=== PATIENT | male | born 1945 | race Caucasian/White ===

== ENCOUNTER 2018-09-20 14:33 | Emergency (ER) | payer MEDICARE ==
[2018-09-20 14:58] VITALS: BP 138/85; PULSE 57; RESP 18; TEMP 98.4
--- NOTE | 2018-09-20 15:47 | XR ---
Right foot HISTORY: Pain 3 views of the right foot Bone mineralization, joint spaces and alignment are maintained. No fracture or dislocation. There is a plantar calcaneal spur. Calcification present at the distal Achilles tendon. IMPRESSION: No acute abnormality. Plantar calcaneal spur and additional findings above.
[2018-09-20 16:04] LABS: Basophils % (A) 1 %; Eosinophils # (A) 0.2 k/uL (0-0.7); Eosinophils % (A) 4 %; HCT 45.5 % (39.0-53.0); HGB 15.2 gm/dL (13.0-17.5); Lymphocytes # (A) 2.1 k/uL (1.0-4.8); Lymphocytes % (A) 32 %; MCH 30.7 pg (25.0-35.0); MCHC 33.3 g/dL (31.0-37.0); Mean Platelet Volume 7.2; Monocytes # (A) 0.5 k/uL (0-1.0); Monocytes % (A) 7 %; Neutrophils # (A) 3.6 k/uL (1.3-7.7); Neutrophils % (A) 55 %; Platelet Count 234 k/uL (150-450); RBC 4.95 m/uL (4.30-5.90); RDW 13.5 % (11.5-15.5); WBC 6.6 k/uL (3.8-10.6)
[2018-09-20 16:15] LABS: ALT 23 U/L (21-72); AST 21 U/L (17-59); Albumin 3.9 g/dL (3.5-5.0); Alkaline Phosphatase 55 U/L (38-126); Anion Gap 9 mmol/L; Blood Urea Nitrogen 20 mg/dL (9-20); C Reactive Protein 5.4 mg/L (<10.0); Calcium 9.1 mg/dL (8.4-10.2); Carbon Dioxide 21 mmol/L (22-30); Chloride 113 mmol/L (98-107); Glucose 88 mg/dL (74-99); Potassium 4.4 mmol/L (3.5-5.1); Sodium 143 mmol/L (137-145); Total Bilirubin 0.6 mg/dL (0.2-1.3); Total Protein 6.9 g/dL (6.3-8.2)
--- NOTE | 2018-09-20 16:25 | ED ---
Lower Extremity Injury HPI - General Chief Complaint: Extremity Injury, Lower Stated Complaint: Swollen foot Time Seen by Provider: 09/20/18 15:07 Source: patient Mode of arrival: ambulatory Limitations: no limitations - History of Present Illness Initial Comments: 73-year-old male presenting today for chief complaint of right foot pain and erythema x 6 days. Patient states that on Friday developed erythema and pain to the foot, states it is exquisitely tender to rocking. He states it is mostly at the base of the first digit. She denies any limited changes's range of motion at the digits. Patient denies any trauma or injury. He denies any sharyn aks the skin. Patient denies any fever or chills night sweats or general malaise. Patient states he was seen by his primary care provider who thought it could be developing cellulitis and prescribed Keflex. Patient states she's been compliant with medications he denies the erythema worsening he states it has stayed in the same location as the onset on Friday. He states it remains tender. Patient states he is concerned it may be gout, denies history. She denies lower extremity swelling, pt states at the base of the right great toe mild swelling. Upon arrival patient appears well he is afebrile appearing well remaining review of system negative, patient denies any recent shortness of b reath, chest pain, back pain, abdominal pain, nausea or vomiting, numbness or tingling, dysuria or hematuria, constipation or diarrhea, headaches or visual changes, or any other complaints. - Related Data Previous Rx's Medication Instructions Recorded Sulfamethox-Tmp 800-160Mg [Bactrim 2 tab PO Q12HR 7 Days #28 tab 09/20/18 DS 800-160 mg] Allergies Allergy/AdvReac Type Severity Reaction Status Date / Time No Known Allergies Allergy Verified 09/20/18 14:58 Review of Systems ROS Statement: Those systems with pertinent positive or pertinent negative responses have been documented in the HPI. ROS Other: All systems not noted in ROS Statement are negative. Past Medical History Past Medical History: Hyperlipidemia Additional Past Medical History / Comment(s): skin cancer on face that was removed History of Any Multi-Drug Resistant Organisms: None Reported Past Surgical History: Orthopedic Surgery Additional Past Surgical History / Comment(s): skin cancer removal from face Past Psychological History: No Psychological Hx Reported Smoking Status: Former smoker Past Alcohol Use History: None Reported Past Drug Use History: None Reported General Exam - General Exam Comments Initial Comments: General: The patient is awake and alert, in no distress, and does not appear acutely ill. Eye: Pupils are equal, round and reactive to light, extra-ocular movements are intact. No nystagmus. There is normal conjunctiva bilaterally. No signs of icterus. Ears, nose, mouth and throat: There are moist mucous membranes and no oral lesions. Neck: The neck is supple, there is no tenderness or JVD. Cardiovascular: There is a regular rate and rhythm. No murmur, rub or gallop is appreciated. Respiratory: Lungs are clear to auscultation, respirations are non-labored, breath sounds are equal. No wheezes, stridor, rales, or rhonchi. Musculoskeletal: Upon inspection of the foot there is erythema and mild soft tissue swelling at the MTP joint of digits #1-3, especially digit #1. Normal ROM, mild tenderness at the base of 1st MTP joint. Strength 5/5 of the digits of the feet b/l including MTP. Sensation intact. DP pulses equal bilaterally 2+. Pt tender to palpation over 1st MTP base, as welll as second diffusely. Capillary refill less than 2 seconds. Negative Lisa. No tenderness to patient of the calf. Neurological: A&O x 3. CN II-XII intact, There are no obvious motor or sensory deficits. Coordination appears grossly intact. Speech is normal. Skin: Skin is warm and dry and no rashes or lesions are noted. Psychiatric: Cooperative, appropriate mood & affect, normal judgment. Limitations: no limitations Course Vital Signs 09/20/18 14:54 Temperature 98.4 F Pulse Rate 57 L Respiratory 18 Rate Blood Pressure 138/85 O2 Sat by Pulse 95 Oximetry Medical Decision Making - Medical Decision Making 73-year-old male presenting with erythema of the right foot and pain at the MTP joints. Laboratory studies revealed no moist ESR as well as CRP no leukocytosis. Patient has no constitutional symptoms, afebrile upon arrival. Location of erythema and swelling concerning for possible gout. Imaging studies (-) for acute osseous abnormality. Patient was evaluated impression by attending physician Dr. rPide. DDX cellulitis vs gout-agreeable with plan and d/c. Bactrim added to her antibiotic regimen, and patient instructed to take ibuprofen every 6-8 hours for the next 7-10 days. Pt is to monitor erythema return for any worsening. Return parameters were discussed at length the patient verbalizes understanding. Patient discharged appearing well, denying questions at this time. - Lab Data Result diagrams: 09/20/18 15:46 09/20/18 15:46 Lab Results 09/20/18 09/20/18 09/20/18 Range/Units 15:46 15:46 15:46 WBC 6.6 (3.8-10.6) k/uL RBC 4.95 (4.30-5.90) m/uL Hgb 15.2 (13.0-17.5) gm/dL Hct 45.5 (39.0-53.0) % MCV 92.0 (80.0-100.0) fL MCH 30.7 (25.0-35.0) pg MCHC 33.3 (31.0-37.0) g/dL RDW 13.5 (11.5-15.5) % Plt Count 234 (150-450) k/uL Neutrophils % 55 % Lymphocytes % 32 % Monocytes % 7 % Eosinophils % 4 % Basophils % 1 % Neutrophils # 3.6 (1.3-7.7) k/uL Lymphocytes # 2.1 (1.0-4.8) k/uL Monocytes # 0.5 (0-1.0) k/uL Eosinophils # 0.2 (0-0.7) k/uL Basophils # 0.0 (0-0.2) k/uL ESR (0-15) mm/hr Sodium 143 (137-145) mmol/L Potassium 4.4 (3.5-5.1) mmol/L Chloride 113 H (98-107) mmol/L Carbon Dioxide 21 L (22-30) mmol/L Anion Gap 9 mmol/L BUN 20 (9-20) mg/dL Creatinine 0.83 (0.66-1.25) mg/dL Est GFR (CKD-EPI)AfAm >90 (>60 ml/min/1.73 sqM) Est GFR (CKD-EPI)NonAf 89 (>60 ml/min/1.73 sqM) Glucose 88 (74-99) mg/dL Uric Acid 7.8 (3.5-8.5) mg/dL Calcium 9.1 (8.4-10.2) mg/dL Total Bilirubin 0.6 (0.2-1.3) mg/dL AST 21 (17-59) U/L ALT 23 (21-72) U/L Alkaline Phosphatase 55 (38-126) U/L C-Reactive Protein 5.4 (<10.0) mg/L Total Protein 6.9 (6.3-8.2) g/dL Albumin 3.9 (3.5-5.0) g/dL 09/20/18 Range/Units 16:13 WBC (3.8-10.6) k/uL RBC (4.30-5.90) m/uL Hgb (13.0-17.5) gm/dL Hct (39.0-53.0) % MCV (80.0-100.0) fL MCH (25.0-35.0) pg MCHC (31.0-37.0) g/dL RDW (11.5-15.5) % Plt Count (150-450) k/uL Neutrophils % % Lymphocytes % % Monocytes % % Eosinophils % % Basophils % % Neutrophils # (1.3-7.7) k/uL Lymphocytes # (1.0-4.8) k/uL Monocytes # (0-1.0) k/uL Eosinophils # (0-0.7) k/uL Basophils # (0-0.2) k/uL ESR 13 (0-15) mm/hr Sodium (137-145) mmol/L Potassium (3.5-5.1) mmol/L Chloride (98-107) mmol/L Carbon Dioxide (22-30) mmol/L Anion Gap mmol/L BUN (9-20) mg/dL Creatinine (0.66-1.25) mg/dL Est GFR (CKD-EPI)AfAm (>60 ml/min/1.73 sqM) Est GFR (CKD-EPI)NonAf (>60 ml/min/1.73 sqM) Glucose (74-99) mg/dL Uric Acid (3.5-8.5) mg/dL Calcium (8.4-10.2) mg/dL Total Bilirubin (0.2-1.3) mg/dL AST (17-59) U/L ALT (21-72) U/L Alkaline Phosphatase (38-126) U/L C-Reactive Protein (<10.0) mg/L Total Protein (6.3-8.2) g/dL Albumin (3.5-5.0) g/dL Disposition Clinical Impression: Right foot pain, Burn erythema of right foot Disposition: HOME SELF-CARE Condition: Good Instructions (If sedation given, give patient instructions): Cellulitis (ED), Gout (ED) Additional Instructions: Please use medication as discussed. Please follow-up with family doctor in the next 2 days. Please return to emergency room if the symptoms increase or worsen or for any other concerns. Prescriptions: Sulfamethox-Tmp 800-160Mg [Bactrim DS 800-160 mg] 2 tab PO Q12HR 7 Days #28 tab Is patient prescribed a controlled substance at d/c from ED?: No Referrals: Naeem Roblero DO [Primary Care Provider] - 1-2 days Time of Disposition: 16:48
[2018-09-20] MEDS ORDERED: IBUPROFEN 600 MG TAB PO STA (16:49)
== END 2018-09-20 17:40 | disposition home or self-care (01) ==
LOC: EC 14:33
DX: M79.671 Pain in right foot (principal); L53.9 Erythematous condition, unspecified; M79.89 Other specified soft tissue disorders; Z85.828 Personal history of other malignant neoplasm of skin; Z87.891 Personal history of nicotine dependence
CPT/HCPCS: 36415; 80053; 84550; 85025; 85652; 86140; 99283

== ENCOUNTER 2019-01-31 10:31 | Emergency (ER) | payer MEDICARE ==
[2019-01-31 10:47] VITALS: RESP 16; TEMP 98.3
--- NOTE | 2019-01-31 11:11 | ED ---
General Adult HPI - General Chief complaint: Skin/Abscess/Foreign Body Stated complaint: Arm infection Time Seen by Provider: 01/31/19 10:55 Source: patient, RN notes reviewed Mode of arrival: ambulatory Limitations: no limitations - History of Present Illness Initial comments: Patient is a pleasant 74-year-old male presenting to the emergency Department with left forearm swelling. Onset of symptoms was yesterday. Patient did have somewhat similar symptoms a year or so ago of his foot that was diagnosed as cellulitis. Patient was golfing yesterday. Patient states it is burning. No other area of involvement. No upper arm involvement. No fevers. No trauma. No known bug bites. Patient does have some mild skin breakdown in the medial portion of the forearm and some chronic forearm discoloration. - Related Data Home Medications Medication Instructions Recorded Confirmed Multivitamins, Thera [Multivitamin 1 tab PO DAILY 01/31/19 01/31/19 (formulary)] Pravastatin Sodium [Pravachol] 40 mg PO DAILY 01/31/19 01/31/19 Vit A/Vit C/Vit E/Zinc/Copper 1 cap PO DAILY 01/31/19 01/31/19 [ICAPS SOFTGEL] diphenhydrAMINE [Benadryl] 25 mg PO HS PRN 01/31/19 01/31/19 Previous Rx's Medication Instructions Recorded Cephalexin [Keflex] 500 mg PO QID #40 cap 01/31/19 predniSONE 20 mg PO BID #10 tab 01/31/19 Allergies Allergy/AdvReac Type Severity Reaction Status Date / Time No Known Allergies Allergy Verified 01/31/19 11:02 Review of Systems ROS Statement: Those systems with pertinent positive or pertinent negative responses have been documented in the HPI. ROS Other: All systems not noted in ROS Statement are negative. Constitutional: Denies: fever Eyes: Denies: eye pain ENT: Denies: ear pain Respiratory: Denies: cough, dyspnea Cardiovascular: Denies: chest pain Endocrine: Denies: fatigue Gastrointestinal: Denies: abdominal pain Genitourinary: Denies: dysuria Musculoskeletal: Denies: back pain Skin: Reports: as per HPI, rash Neurological: Denies: weakness Past Medical History Past Medical History: Hyperlipidemia Additional Past Medical History / Comment(s): skin cancer on face that was removed History of Any Multi-Drug Resistant Organisms: None Reported Past Surgical History: Orthopedic Surgery Additional Past Surgical History / Comment(s): skin cancer removal from face Past Psychological History: No Psychological Hx Reported Smoking Status: Former smoker Past Alcohol Use History: None Reported Past Drug Use History: None Reported General Exam Limitations: no limitations General appearance: alert, in no apparent distress Head exam: Present: atraumatic Eye exam: Present: normal appearance, PERRL ENT exam: Present: normal oropharynx Neck exam: Present: normal inspection Respiratory exam: Present: normal lung sounds bilaterally Cardiovascular Exam: Present: regular rate, normal rhythm Expanded Peripheral pulses: 2+: Radial (L) GI/Abdominal exam: Present: soft. Absent: tenderness Left Forearm Wrist exam: Present: tenderness, swelling, other (Left Dorsal forearm with approximately 12 x 8 cm area of swelling and mild erythema and very mild tenderness.) Neurological exam: Present: alert Psychiatric exam: Present: normal affect, normal mood Skin exam: Present: erythema (Mild erythema left dorsal forearm), other (Small area of skin breakdown medial left forearm.) Course Vital Signs 01/31/19 10:44 Temperature 98.3 F Pulse Rate 61 Respiratory 16 Rate Blood Pressure 130/70 O2 Sat by Pulse 97 Oximetry Medical Decision Making - Medical Decision Making Patient presents with symptoms and evaluation more likely related to inflammation/ALLERGIC reaction possibly from insect bite. Cellulitis cannot be excluded. Patient will be treated for both. Patient is advised close follow-up with primary care physician beginning of the week. Disposition Clinical Impression: Left arm swelling Disposition: HOME SELF-CARE Condition: Stable Instructions (If sedation given, give patient instructions): Cellulitis (ED), Insect Bite or Sting (ED) Additional Instructions: Please follow-up with primary care physician in the being the week for reevaluation. Return for fevers, increased pain, increased redness, increased swelling, worsening symptoms, symptoms involving the upper arm, or any other concerns. Continue [id number] Benadryl, 25-50 mg 4 times daily for the next 5 days. Your prescriptions have been sent to [facility] Prescriptions: Cephalexin [Keflex] 500 mg PO QID #40 cap predniSONE 20 mg PO BID #10 tab Is patient prescribed a controlled substance at d/c from ED?: No Referrals: Naeem Roblero DO [Primary Care Provider] - 1-2 days Time of Disposition: 11:17
[2019-01-31 11:28] VITALS: BP 127/67; PULSE 57
== END 2019-01-31 11:35 | disposition home or self-care (01) ==
LOC: EC 10:31
DX: M79.89 Other specified soft tissue disorders (principal); L53.9 Erythematous condition, unspecified; L08.9 Local infection of the skin and subcutaneous tissue, unspecified; E78.5 Hyperlipidemia, unspecified; Z85.828 Personal history of other malignant neoplasm of skin; Z87.891 Personal history of nicotine dependence; Z98.890 Other specified postprocedural states; Z79.899 Other long term (current) drug therapy
CPT/HCPCS: 99283

== ENCOUNTER 2019-04-27 07:16 | Emergency (ER) | payer MEDICARE ==
[2019-04-27 07:24] VITALS: BP 146/82; PULSE 50; RESP 17; TEMP 98.1
[2019-04-27] MEDS ORDERED: diphenhydrAMINE 25 MG CAP PO STA (07:41)
[2019-04-27] MEDS ORDERED: predniSONE 20 MG TAB PO STA (07:41)
[2019-04-27] MEDS ORDERED: FAMOTIDINE 20 MG TAB PO STA (07:42)
--- NOTE | 2019-04-27 07:55 | ED ---
General Adult HPI - General Chief complaint: Skin/Abscess/Foreign Body Stated complaint: L Leg Swelling Time Seen by Provider: 04/27/19 07:26 Source: patient Mode of arrival: ambulatory Limitations: no limitations - History of Present Illness Initial comments: The patient is a 74-year-old male with history of hyperlipidemia who presents to the emergency room in with reported redness and swelling to his left lateral thigh. He reports that [place] He was outside when he was bit by something. States that he had a small papule which turned into a large erythematous, warm area. Denies any drainage. No blistering to the area. States that it has been pruritic. Denies any leg pain. No calf swelling. No history of ALLERGIC reactions as such in the past. He took Benadryl which did somewhat improve his symptoms. He also reports having an old prescription for Keflex at home for which she did start taking as well. Reports that he took 2 days worth of the medication. He denies that the rash is getting larger in size but due to the persistence of the lesion, he did want to get evaluated. Denies fevers or chills. No nausea or vomiting. Denies the additional exposures. No numbness or tingling in the lower extremity. Denies any shortness of breath or cough. No wheeze or respiratory compromise. There are no other alleviating, precipitating or modifying factors - Related Data Home Medications Medication Instructions Recorded Confirmed Multivitamins, Thera [Multivitamin 1 tab PO DAILY 01/31/19 01/31/19 (formulary)] Pravastatin Sodium [Pravachol] 40 mg PO DAILY 01/31/19 01/31/19 Vit A/Vit C/Vit E/Zinc/Copper 1 cap PO DAILY 01/31/19 01/31/19 [ICAPS SOFTGEL] diphenhydrAMINE [Benadryl] 25 mg PO HS PRN 01/31/19 01/31/19 Previous Rx's Medication Instructions Recorded Cephalexin [Keflex] 500 mg PO QID #40 cap 01/31/19 Cephalexin [Keflex] 500 mg PO QID #40 cap 01/31/19 predniSONE 20 mg PO BID #10 tab 01/31/19 predniSONE 20 mg PO BID #10 tab 01/31/19 Cephalexin [Keflex] 500 mg PO QID #28 cap 04/27/19 Famotidine [Pepcid] 20 mg PO DAILY #5 tablet 04/27/19 diphenhydrAMINE & Zinc Cream 1 applic TOPICAL BID #60 gm 04/27/19 [Benadryl Cream] predniSONE 20 mg PO BID #10 tab 04/27/19 Allergies Allergy/AdvReac Type Severity Reaction Status Date / Time No Known Allergies Allergy Verified 01/31/19 11:02 Review of Systems ROS Statement: Those systems with pertinent positive or pertinent negative responses have been documented in the HPI. ROS Other: All systems not noted in ROS Statement are negative. Past Medical History Past Medical History: Hyperlipidemia Additional Past Medical History / Comment(s): skin cancer on face that was removed, aortic aneurysm History of Any Multi-Drug Resistant Organisms: None Reported Past Surgical History: Orthopedic Surgery Additional Past Surgical History / Comment(s): skin cancer removal from face Past Psychological History: No Psychological Hx Reported Smoking Status: Former smoker Past Alcohol Use History: None Reported Past Drug Use History: None Reported General Exam Limitations: no limitations General appearance: alert, in no apparent distress Respiratory exam: Present: normal lung sounds bilaterally. Absent: respiratory distress, wheezes, stridor Cardiovascular Exam: Present: normal rhythm, bradycardia Extremities exam: Present: other. Absent: pedal edema (large area of redness consistent with allergic reaction. No fluctuance, induration or crepitance. No calf pain or swelling. 2+ DP and PT pulses. Blanchable), calf tenderness Course Vital Signs 04/27/19 07:20 Temperature 98.1 F Pulse Rate 50 L Respiratory 17 Rate Blood Pressure 146/82 O2 Sat by Pulse 99 Oximetry Medical Decision Making - Medical Decision Making Upon arrival the patient was placed into room 17. A thorough history and physical exam is performed. I did evaluate the patient's lower extremities. The patient does have a large area of urticaria on the lateral aspect of the thigh. This measures approximately 12 x 7 cm. The patient also has 2 smaller satellite areas. Surrounding soft tissue is without induration. There is mild warmth but no lymphatic streaking. Compartments are soft. No crepitance. No skin sloughing. The patient was provided with 25 mg of Benadryl, 60 g of prednisone and 20 mg of Pepcid. I did recommend covering the patient with antibiotics to prevent secondary cellulitis. The patient will be placed on Keflex 4 times a day. Patient was sent to the pharmacy. I also recommended that the patient take 5 additional days of prednisone and Pepcid. I will provide the patient with a prescription for Benadryl cream. I do want the franc ent to be evaluated within 1-2 days by his primary care physician to ensure improvement in his rash. Patient has any new or worsening symptoms he should return to the emergency room for wound evaluation. The patient was in agreement to the treatment plan and is discharged home in stable condition Disposition Clinical Impression: Contact dermatitis Disposition: HOME SELF-CARE Condition: Stable Instructions (If sedation given, give patient instructions): Contact Dermatitis (ED) Additional Instructions: Please follow-up with your primary care doctor in 2-4 days for reevaluation of your rash. Take the medications as directed. Return to the emergency room for any new or worsening symptoms Prescriptions: diphenhydrAMINE & Zinc Cream [Benadryl Cream] 1 applic TOPICAL BID #60 gm Cephalexin [Keflex] 500 mg PO QID #28 cap Famotidine [Pepcid] 20 mg PO DAILY #5 tablet predniSONE 20 mg PO BID #10 tab Is patient prescribed a controlled substance at d/c from ED?: No Referrals: Naeem Roblero DO [Primary Care Provider] - 1-2 days Time of Disposition: 07:55
== END 2019-04-27 08:08 | disposition home or self-care (01) ==
LOC: EC 07:16
DX: L25.9 Unspecified contact dermatitis, unspecified cause (principal); L50.9 Urticaria, unspecified; R00.1 Bradycardia, unspecified; E78.5 Hyperlipidemia, unspecified; Z87.891 Personal history of nicotine dependence; Z79.899 Other long term (current) drug therapy; Z85.828 Personal history of other malignant neoplasm of skin; Z98.890 Other specified postprocedural states
CPT/HCPCS: 99283; J7512

== ENCOUNTER → 2019-05-07 | Outpatient (CLI) | payer OTHER ==
--- NOTE | 2019-05-07 14:32 | NM ---
EXAMINATION TYPE: NM bone scan whole body DATE OF EXAM: 05/07/2019 COMPARISON: CT abdomen and pelvis 2016. HISTORY: Left hip pain. Delayed whole-body scanning was performed following the injection of 25.1 mCi Tc 99m MDP. Images acq uired 3 hours post injection. Images are obtained of the whole-body in anterior and posterior project ions with additional images of the pelvis in various projections. FINDINGS: There is no suspicious asymmetric radiotracer uptake to suggest osseous metastatic disease or other s uspicious abnormality. No increased radiotracer uptake identified in the region of left hip at area o f clinical concern when comparing with right hip or remainder of pelvis. Normal excretion in the blad juliette is noted. IMPRESSION: As above.
== END | disposition home or self-care (01) ==
LOC: RADNMMAIN 10:02
DX: M25.552 Pain in left hip (principal)
CPT/HCPCS: 78306; A9503

== ENCOUNTER → 2019-08-02 | Outpatient (CLI) | payer MEDICARE ==
--- NOTE | 2019-08-02 10:31 | XR ---
EXAMINATION TYPE: XR chest 2V DATE OF EXAM: 08/02/2019 COMPARISON: NONE HISTORY: Shortness of breath TECHNIQUE: Frontal and lateral views of the chest are obtained. FINDINGS: Scattered senescent parenchymal changes noted. No evidence for infiltrate. No evidence for atelectasis. Heart size is stable. Mediastinal structures are stable and grossly unremarkable. No evidence for hilar prominence. Degenerative changes dorsal spine. IMPRESSION: 1. No evidence for acute pulmonary disease.
== END ==
LOC: RADXRYALE 09:54
PROVIDERS: ATTEND Physician Assistant Medical
DX: Z01.811 Encounter for preprocedural respiratory examination (principal)
CPT/HCPCS: 71046

== ENCOUNTER → 2019-09-21 | Outpatient (CLI) | payer MEDICARE ==
--- NOTE | 2019-09-21 09:39 | XR ---
EXAMINATION TYPE: XR abdomen 2V DATE OF EXAM: 09/21/2019 CLINICAL HISTORY: Abdominal pain and constipation. TECHNIQUE: Supine and upright views of the abdomen are obtained. COMPARISON: CT abdomen and pelvis October 23, 2015 FINDINGS: Scattered gas is seen in non-distended small bowel loops. Gas and fecal material is seen in non-distended colon. New aortoiliac stent graft with additional stent grafts in the right and left renal arteries. Lung bases are clear. No pneumoperitoneum. Scattered pelvic phleboliths. Some spurri ng in the visualized lower thoracic spine. IMPRESSION: Overall nonobstructive bowel gas pattern. No significant colonic fecal prominence.
== END | disposition home or self-care (01) ==
LOC: RADXRYALE 08:38
PROVIDERS: ATTEND Physician Assistant Medical
DX: K59.00 Constipation, unspecified (principal)
CPT/HCPCS: 74019

== ENCOUNTER 2020-05-15 05:33 | Emergency (ER) | payer MEDICARE ==
[2020-05-15 05:40] VITALS: BP 113/67; PULSE 76; RESP 18; TEMP 99
--- NOTE | 2020-05-15 05:53 | ED ---
Recheck HPI - General Chief Complaint: Recheck/Abnormal Lab/Rx Stated Complaint: chills Time Seen by Provider: 05/15/20 05:44 Source: patient Mode of arrival: ambulatory - History of Present Illness Initial Comments: Joaquin is a very pleasant 75-year-old gentleman who presents the ER today via private vehicle requesting over 19 test. Patient reports that he was out hunting on upon returning home he had the chills. He reports he's been feeling better since then however he does live at home with a 94-year-old mother and wanted to be tested to make sure there is no chance he is to be maintained. Patient's been eating and drinking well but having any fevers no cough no shortness of breath no body aches. - Related Data Home Medications Medication Instructions Recorded Confirmed Multivitamins, Thera [Multivitamin 1 tab PO DAILY 01/31/19 01/31/19 (formulary)] Pravastatin Sodium [Pravachol] 40 mg PO DAILY 01/31/19 01/31/19 Vit A/Vit C/Vit E/Zinc/Copper 1 cap PO DAILY 01/31/19 01/31/19 [ICAPS SOFTGEL] diphenhydrAMINE [Benadryl] 25 mg PO HS PRN 01/31/19 01/31/19 Previous Rx's Medication Instructions Recorded Cephalexin [Keflex] 500 mg PO QID #40 cap 01/31/19 Cephalexin [Keflex] 500 mg PO QID #40 cap 01/31/19 predniSONE [Deltasone] 20 mg PO BID #10 tab 01/31/19 predniSONE [Deltasone] 20 mg PO BID #10 tab 01/31/19 Cephalexin [Keflex] 500 mg PO QID #28 cap 04/27/19 Famotidine [Pepcid] 20 mg PO DAILY #5 tablet 04/27/19 diphenhydrAMINE & Zinc Cream 1 applic TOPICAL BID #60 gm 04/27/19 [Benadryl Cream] predniSONE [Deltasone] 20 mg PO BID #10 tab 04/27/19 Allergies Allergy/AdvReac Type Severity Reaction Status Date / Time No Known Allergies Allergy Verified 05/15/20 05:40 Review of Systems ROS Statement: Those systems with pertinent positive or pertinent negative responses have been documented in the HPI. ROS Other: All systems not noted in ROS Statement are negative. Past Medical History Past Medical History: Hyperlipidemia Additional Past Medical History / Comment(s): skin cancer on face that was removed, aortic aneurysm History of Any Multi-Drug Resistant Organisms: None Reported Past Surgical History: Orthopedic Surgery Additional Past Surgical History / Comment(s): skin cancer removal from face Past Psychological History: No Psychological Hx Reported Smoking Status: Never smoker Past Alcohol Use History: None Reported Past Drug Use History: None Reported General Exam - General Exam Comments Initial Comments: Physical Exam GENERAL: Patient is well-developed and well-nourished. Patient is nontoxic and well-hydrated and is in no distress. HENT: Normocephalic, Atraumatic. EYES: PERRL, EOMI PULMONARY: Unlabored respirations. CARDIOVASCULAR: RRR Warm and well perfused extremities ABDOMEN: Non-distended SKIN: No rashes or bruising : Deferred NEUROLOGIC: Alert and oriented Normal speech Normal gait MUSCULOSKELETAL: Moving all extremities with no apparent injury PSYCHIATRIC: No SI/HI Course Vital Signs 05/15/20 05:37 Temperature 99 F Pulse Rate 76 Respiratory 18 Rate Blood Pressure 113/67 O2 Sat by Pulse 96 Oximetry Medical Decision Making - Medical Decision Making patient was seen and evaluated history is obtained from the patient is an pleasant 75-year-old gentleman requesting aCoban 19 test, advised the patient we do not have a rapid available but will Test him with the PCR he is agreeable to this advised to continue working until he is a negative result. All questions pertaining care were answered she was discharged home in stable condition. Disposition Clinical Impression: Exposure to COVID-19 virus Disposition: HOME SELF-CARE Condition: Stable Additional Instructions: Test will result in 48-72h, he will be notified by the hospital in the health department if you have a positive test. I recommended he call the hospital back on Friday to confirm the chest is resulted and is negative. Continued isolate and quarantine it to your test results. Review the ER if you have any worsening symptoms develop any shortness of breath fever that doesn't improve with medications or any new or concerning symptoms. Is patient prescribed a controlled substance at d/c from ED?: No Referrals: Naeem Roblero DO [Primary Care Provider] - 1-2 days
== END 2020-05-15 06:01 | disposition home or self-care (01) ==
LOC: EC 05:33
DX: Z03.818 Encounter for observation for suspected exposure to other biological agents ruled out (principal); E78.5 Hyperlipidemia, unspecified; Z79.899 Other long term (current) drug therapy; Z85.828 Personal history of other malignant neoplasm of skin; Z20.828 Contact with and (suspected) exposure to other viral communicable diseases
CPT/HCPCS: 99283; U0003

== ENCOUNTER → 2020-10-26 | Outpatient (CLI) | payer MEDICARE ==
--- NOTE | 2020-10-26 08:58 | CTL ---
EXAMINATION TYPE: CT Low Dose Lung DATE OF EXAM ORDERED: 10/26/2020 HISTORY: Long-term tobacco use. Lung cancer screening CT DLP: 127.[address] CTDI: 3.8 mGy Automated exposure control for dose reduction was used. SCREENING VISIT: Baseline study COMPARISON: None. TECHNIQUE: Low dose computed tomography scan was performed through the chest at 1 mm thick sections a nd reconstructed images in the coronal plane at [address] DIAGNOSTIC QUALITY: Limited, but interpretable Some motion artifact and dependent atelectasis. FINDINGS: LUNG NODULES: Present, detailed below: There is 3 x 2 mm right middle lobe nodule axial image 190. There is 4.8 x 2.5 mm lingular nodule axial image 97. Incidental calcified 4 mm nodule or granuloma right upper lobe axial image 110. There is 5.2 x 3.7 cm subpleural right lower lobe nodule axial image 199. There is 4.2 x 3.5 mm subpleural left lower lobe nodule axial image 147. LUNGS: COPD: Severity: Mild to borderline moderate Fibrosis: Severity: None Lymph nodes: Enlarged 1.4 x 1.3 cm AP window lymph node axial image 90 just anterior to the mid esoph irish. This is nonspecific. Other findings: Elevated left hemidiaphragm. RIGHT PLEURAL SPACE: Effusion: None Calcification: None Thickening: None Pneumothorax: None LEFT PLEURAL SPACE: Effusion: None Calcification: None Thickening: None Pneumothorax: None HEART: Heart Size: Normal Coronary calcification: None Pericardial effusion: None OTHER FINDINGS: Upper abdomen: Abdominal aortic stent graft noted on localizer. Bony thorax: None Supraclavicular region: None Other: None IMPRESSION: Scattered small nodules as detailed above. CT LUNG RAD AND CT CHEST RECOMMENDATION: Lung-Rad 2 Benign Appearance or Behavior: Continue annual sc reening with LDCT in 12 months. S Modifier (other clinically significant findings): None
== END | disposition home or self-care (01) ==
LOC: RADCTMAIN 06:38
DX: R91.8 Other nonspecific abnormal finding of lung field (principal)
CPT/HCPCS: 71271

== ENCOUNTER → 2021-03-08 | Outpatient (CLI) | payer MEDICARE ==
--- NOTE | 2021-03-08 12:32 | CT ---
EXAMINATION TYPE: CT angio abdomen pelvis DATE OF EXAM: 03/08/2021 COMPARISON: None HISTORY: follow up to AAA repair CT DLP: 2498.4 mGycm CONTRAST: CTA thoracic and abdominal aorta with 3-D reconstruction is performed without Oral Contrast and witho ut and with IV Contrast, patient injected with 100 mL of Isovue 370. Contrast CTA of the abdominal aorta was performed from the lung bases through the base of the pelvis. 3-D reconstruction imaging obtained at a separate workstation. CONTRAST CT ABDOMEN AND PELVIS ABDOMINAL AORTA: Aortoiliac stent graft is noted to be in place. No evidence for endoleak. [place] ane urysm measures 4.7 cm. Renal artery stents are in place with appropriate renal perfusion noted. Mi c and SMA vessels are within normal limits. LIVER/GB- No significant abnormality is seen. PANCREAS- No significant abnormality is seen. SPLEEN- No significant abnormality is seen. ADRENALS- No significant abnormality is seen. KIDNEYS/BLADDER-left renal parapelvic cysts and left renal cortical cysts. BOWEL- No Significant abnormality GENITAL ORGANS: No gross abnormality seen. LYMPH NODES- No greater than 1cm abdominal or pelvic lymph nodes areappreciated. OSSEOUS STRUCTURES- No significant abnormality is seen. OTHER- No significant abnormality is seen. IMPRESSION- Aortoiliac stent graft is noted to be in place. No evidence for endoleak.
== END | disposition home or self-care (01) ==
LOC: RADCTMAIN 09:58
PROVIDERS: ATTEND Surgery
DX: I71.4 Abdominal aortic aneurysm, without rupture (principal); Z98.890 Other specified postprocedural states
CPT/HCPCS: 82565; 84520; 36415; 74174; Q9967

== ENCOUNTER → 2021-08-13 | Outpatient (CLI) | payer MEDICARE ==
--- NOTE | 2021-08-13 09:43 | CT ---
EXAMINATION TYPE: CT soft tissue neck w con DATE OF EXAM: 08/13/2021 HISTORY: Enlarged lymph nodes. Palpable abnormalities. COMPARISON: NONE CT DLP: 720 mGycm. Automated Exposure Control for Dose Reduction was Utilized. TECHNIQUE: CT scan of the neck is performed with IV Contrast, patient injected with 100 mL of Isovue 300, axial images are obtained, coronal and sagittal reformatted images are reviewed. FINDINGS: Airway: There is 1.1 cm right thyroid nodule image 64, nonurgent thyroid ultrasound follow-up advised if this is not known finding to better evaluate and characterize. Parotid/submandibular glands: No gross abnormality seen. Carotid/Vascular Structures: Moderate mixed plaque bilateral carotid bulb level right greater than le ft without significant stenosis. Osseous Structures: Levoconvex scoliosis centered lower cervical spine. Moderate multilevel spurring in the cervical spine . Demineralization is present. Other: Metallic BBs placed the level palpable abnormality axial image 42 at level of hyoid bone corre lates to the inferior aspect of the right submandibular gland and axial image 31 superior and lateral to this at the inferior margin of the right parotid gland. There are some scattered subcentimeter ly mph nodes throughout the neck bilaterally. No concerning solid or cystic mass or adenopathy at the ar eas of metallic BB or remainder of the neck. IMPRESSION: No abnormal greater than 1 cm neck lymph nodes. There is 1.1 cm right thyroid nodule, ad vise nonurgent thyroid ultrasound follow-up to further evaluate if this is not known finding.
== END | disposition home or self-care (01) ==
LOC: RADCTMAIN 07:37
PROVIDERS: ATTEND Family Medicine
DX: Z01.812 Encounter for preprocedural laboratory examination (principal); E04.1 Nontoxic single thyroid nodule
CPT/HCPCS: 82565; 84520; 70491; 36415; Q9967

== ENCOUNTER → 2021-08-27 | Outpatient (CLI) | payer MEDICARE ==
--- NOTE | 2021-08-27 15:59 | US ---
EXAMINATION TYPE: US thyroid st tissue head/neck DATE OF EXAM: 08/27/2021 COMPARISON: Correlation CT neck 08/13/2021 CLINICAL HISTORY: 76-year-old male E04.1 SINGLE THYROID NODULE. TECHNIQUE: Multiple sonographic images of the thyroid gland are obtained. FINDINGS: GLAND SIZE: Right Lobe: 4.2 x 1.2 x 2.1 cm Overall Parenchyma: heterogenous Left Lobe: 3.5 x 1.2 x 2.0 cm Overall Parenchyma: homogeneous Isthmus Thickness: 0.4 cm NODULES RIGHT: # of nodules measured on right: multiple, measured 2 largest 1. 0.6 X 0.6 x 0.4 cm, upper, solid or almost completely solid, TR 4 hypoechoic nodule, which is wi juliette than tall, with smooth margins, without echogenic foci. Prior size: [employer]ER 2. 1.4 X 1.2 x 1.1 cm, mid, solid or almost completely solid, TR 4 hypoechoic nodule, which is wide r than tall, with smooth margins, without echogenic foci. Prior size: [employer]PA[employer]ER LEFT: # of nodules measured on left: 0 Bilateral neck scanned, no evidence of lymphadenopathy. IMPRESSION: Two solid TR 4 nodules in the right lobe measuring 1.4 and 0.6 cm. These can be reassessed at follow- up. FNA if they reach 1.5 cm.
== END | disposition home or self-care (01) ==
LOC: RADUSWWP 12:53
PROVIDERS: ATTEND Family Medicine
DX: E04.2 Nontoxic multinodular goiter (principal)
CPT/HCPCS: 76536

== ENCOUNTER → 2022-03-20 | Outpatient (CLI) | payer MEDICARE ==
--- NOTE | 2022-03-22 07:20 | US ---
EXAMINATION TYPE: US thyroid st tissue head/neck DATE OF EXAM: 03/20/2022 COMPARISON: US CLINICAL HISTORY: E04.1 NONTOXIC SINGLE THYROID NODULE. Nodule. GLAND SIZE: Right Lobe: 5.1 x 2.0 x 1.8 cm Overall Parenchyma: heterogenous Left Lobe: 3.8 x 1.5 x 2.0 cm Overall Parenchyma: homogeneous Isthmus Thickness: 0.44 cm NODULES RIGHT: # of nodules measured on right: 2 1. 0.7 X 0.8 x 0.5 cm, upper lateral, solid or almost completely solid, hypoechoic nodule, which is wider than tall, with smooth margins, without echogenic foci. Prior size: 0.6 x 0.6 x 0.5 cm 2. 1.5 X 1.3 x 1.1 cm, mid mid, solid or almost completely solid, hypoechoic nodule, which is wider than tall, with smooth margins, without echogenic foci. Prior size: 1.4 x 1.2 x 1.1 cm LEFT: # of nodules measured on left: 0 ISTHMUS: # of nodules measured in the isthmus: 0 Bilateral neck scanned, no evidence of lymphadenopathy. IMPRESSION: Stable nonspecific thyroid nodularity.
== END | disposition home or self-care (01) ==
LOC: RADUSWWP 14:11
PROVIDERS: ATTEND Otolaryngology
DX: E04.1 Nontoxic single thyroid nodule (principal)
CPT/HCPCS: 76536

== ENCOUNTER → 2022-05-08 | Outpatient (CLI) | payer MEDICARE ==
--- NOTE | 2022-05-08 11:58 | XR ---
EXAMINATION TYPE: XR elbow complete LT DATE OF EXAM: 05/08/2022 COMPARISON: None HISTORY: Pain, injury TECHNIQUE: 3 view left elbow FINDINGS: Radius aligns normally with the humerus. No acute or subacute fractures are evident. Anteri or fat pad is normal. No elevation of the posterior fat pad is evident which is normal. MRI could be performed if soft tissue evaluation would be of benefit. IMPRESSION: 1. No acute osseous abnormality left elbow
== END | disposition home or self-care (01) ==
LOC: RADXRYALE 08:38
PROVIDERS: ATTEND Physician Assistant Medical
DX: S59.902A Unspecified injury of left elbow, initial encounter (principal); M25.522 Pain in left elbow

== ENCOUNTER → 2023-01-01 | Outpatient (CLI) | payer MEDICARE ==
--- NOTE | 2023-01-01 10:23 | CTL ---
EXAMINATION TYPE: CT Low Dose Lung DATE OF EXAM ORDERED: 01/01/2023 HISTORY: 77-year-old male Z12.2, Z87.891. Lung cancer screening. Former smoker 50 pack-year history. CT DLP: 119.[address] CTDI: 3.60 mGy Automated exposure control for dose reduction was used. SCREENING VISIT: Annual follow-up COMPARISON: 11/29/2021 TECHNIQUE: Low dose computed tomography scan was performed through with coronal and sagittal reconstr uctions. CT DIAGNOSTIC QUALITY: Satisfactory FINDINGS: Heart is upper limits of normal in size without pericardial effusion. Mild atherosclerotic calcifications aortic arch with conventional branching anatomy. Ectatic upper de scending thoracic aorta 3.4 cm and mild aneurysm distally and 3.1 cm. Large caliber to the main right and left pulmonary arteries measuring up to 2.8 cm each suggesting un derlying pulmonary hypertension. Clustered prominent but nonenlarged mediastinal lymph nodes measuring up to 9 mm in the lower paratra cheal regions. No progressive thoracic lymphadenopathy or enlarged nodes by size criteria. Partially visualized 4.2 cm lipoma of the lateral left subscapularis muscle belly. There is interval development of new prominent pleural-parenchymal opacities posterior right base. Si milar pleural parenchymal changes at the basilar right middle lobe. Similar minimal biapical pleural parenchymal scarring extending to the posterior left upper lobe is u nchanged. * Benign calcified granuloma posterior left upper lung. Also lateral right midlung. * 5 mm lateral left lower lobe pulmonary nodule, axial image 171 is unchanged. * 5 mm anterior left midlung pulmonary nodule, axial image 101 is unchanged. * 6 mm posterior left basilar pulmonary nodule not seen previously, axial image 212. Visualized upper abdomen shows no gross abnormality. Anterior endplate spondylosis lower thoracic spine with mild degenerative disc disease midthoracic sp ine. IMPRESSION: 1. Lung RADS Category 4A (suspicious, 5-15% chance of malignancy). A new 6 mm left basilar pulmonary nodule. 2. COPD with mild emphysema and pulmonary arterial hypertension. Borderline heart size. 3. Interval development of prominent pleural parenchymal scarring at the posterior right base. Correl ate for any episodes of pneumonia since the patient's prior 11/29/[address] LUNG RAD AND CT CHEST RECOMMENDATION: Lung-Rad 4A Suspicious: Follow-up 3 month LDCT or PET/CT may be used when there is a > 8 mm solid component. S Modifier (other clinically significant findings): None
== END | disposition home or self-care (01) ==
LOC: RADCTMAIN 06:10
PROVIDERS: ATTEND Family Medicine
DX: Z12.2 Encounter for screening for malignant neoplasm of respiratory organs (principal); J43.9 Emphysema, unspecified; I27.21 Secondary pulmonary arterial hypertension; R91.1 Solitary pulmonary nodule; J98.4 Other disorders of lung; Z87.891 Personal history of nicotine dependence
CPT/HCPCS: 71271

== ENCOUNTER → 2023-04-01 | Outpatient (CLI) | payer MEDICARE ==
--- NOTE | 2023-04-01 23:00 | US ---
EXAMINATION TYPE: US thyroid st tissue head/neck DATE OF EXAM: 04/01/2023 COMPARISON: US 03/20/2022 CLINICAL INDICATION: Male, 78 years old with history of E04.1 SINGLE THYROID NODULE; Nodule. GLAND SIZE: Right Lobe: 4.5 x 1.8 x 2.1 cm Overall Parenchyma: heterogenous Left Lobe: 3.9 x 1.5 x 1.8 cm Overall Parenchyma: heterogenous Isthmus Thickness: 0.47 cm NODULES RIGHT: # of nodules measured on right: 2 1. 0.8 X 0.8 x 0.5 cm, upper lateral, solid or almost completely solid, hypoechoic nodule, which is wider than tall, with smooth margins, without echogenic foci. Prior size: 0.7 x 0.8 x 0.5 cm 2. 1.5 X 1.3 x 1.1 cm, mid mid, solid or almost completely solid, isoechoic nodule, which is wider than tall, with smooth margins, without echogenic foci. TR 4 Prior size: 1.5 x 1.3 x 1.1 cm LEFT: # of nodules measured on left: 0 ISTHMUS: # of nodules measured in the isthmus: 0 Bilateral neck scanned, no evidence of lymphadenopathy. IMPRESSION: Moderately suspicious stable nodule right lobe thyroid. Fine-needle aspiration can be performed. 2017 ACR TI-RADS LEVEL: TR-RADS 4 - Moderately Suspicious: Follow if > 1 cm, FNA if > 1.5 cm *Highest TI-RADS level nodule reported
== END | disposition home or self-care (01) ==
LOC: RADUSWWP 11:38
PROVIDERS: ATTEND Otolaryngology
DX: E04.1 Nontoxic single thyroid nodule (principal)
CPT/HCPCS: 76536

== ENCOUNTER → 2023-04-17 | Outpatient (CLI) | payer MEDICARE ==
--- NOTE | 2023-04-17 11:34 | CT ---
EXAMINATION TYPE: CT chest wo con DATE OF EXAM: 04/17/2023 COMPARISON: 01/01/23 HISTORY: f/u PE CT DLP: 458.[address] of the chest was performed with lung and mediastinal window settings submitted. The la ck of contrast limits evaluation of the vascular, mediastinal and parenchymal structures including th e upper abdomen. LUNGS: Pleural parenchymal scarring right lung base. Previously noted 6 mm pulmonary nodule at the le ft lung base is not reproduced on today's study. Calcified granuloma left upper lobe. No atelectasis. No pulmonary nodule or mass is detected. No pleural effusion. No CT evidence of interstitial lung disease. MEDIASTINUM/ROXANNE: Pulmonary embolism cannot be excluded given the lack of intravenous contrast mediu m. Thoracic aorta is of normal caliber with limited evaluation given lack of contrast. The heart is not enlarged. No evidence for mediastinal mass. No lymph nodes greater than 1cm. UPPER ABDOMEN: No significant abnormality is seen. OTHER: No significant other abnormality. IMPRESSION: 1. Pleural parenchymal scarring right lung base. Previously noted 6 mm pulmonary nodule at the left lung base is not reproduced on today's study. Calcified granuloma left upper lobe. 2.Pulmonary embolism cannot be excluded given the lack of intravenous contrast medium.
== END | disposition home or self-care (01) ==
LOC: RADCTMAIN 10:37
PROVIDERS: ATTEND Internal Medicine Hematology & Oncology
DX: I26.99 Other pulmonary embolism without acute cor pulmonale (principal); I82.5Z9 Chronic embolism and thrombosis of unspecified deep veins of unspecified distal lower extremity; D68.59 Other primary thrombophilia; L92.9 Granulomatous disorder of the skin and subcutaneous tissue, unspecified; E78.5 Hyperlipidemia, unspecified; J98.4 Other disorders of lung; R91.1 Solitary pulmonary nodule
CPT/HCPCS: 71250

== ENCOUNTER → 2023-12-23 | Outpatient (CLI) | payer MEDICARE ==
--- NOTE | 2023-12-23 12:00 | CT ---
EXAMINATION TYPE: CT chest wo con CT DLP: 503.70 mGycm, Automated exposure control for dose reduction was used. DATE OF EXAM: 12/23/2023 8:37 AM COMPARISON: CT chest 04/17/2023, CT low-dose lung cancer screening 01/01/2023, 11/29/2021 CLINICAL INDICATION:Male, 78 years old with history of R91.1 SPN; PHH, solitary pulmonary nodule TECHNIQUE: Multiple axial images were obtained through the chest without IV contrast. Lack of IV or o ral contrast limits evaluation of solid and hollow organ viscera. . Coronal and sagittal reformats re viewed. FINDINGS: LUNGS/ PLEURA: No pleural effusion or pneumothorax. Few scattered calcified granulomas. Stable left l ower lobe 4 mm pulmonary nodule (series 4, image 36). Stable left anterior midlung 4 mm pulmonary nod ule (series 4, image 23). No new or enlarging pulmonary nodules. Similar pleural parenchymal scarring in the right lower lobe. AIRWAY: Patent . Trace secretions within the trachea distally. HEART: Size within normal limits. No pericardial effusion. MEDIASTINUM: No gross evidence of adenopathy. VASCULATURE: No aortic aneurysm. MUSCULOSKELETAL: No acute osseous abnormalities. There is an intramuscular versus adjacent lipoma to the left subscapularis muscle. SOFT TISSUES/LYMPH NODES: Unremarkable. LOWER NECK: Stable right thyroid hypodense nodule measuring 1.1 cm.. UPPER ABDOMEN: Cholelithiasis demonstrated. Partial visualization of infrarenal abdominal aortic sten t graft with bilateral renal artery stents. Left renal sinus cysts redemonstrated. Exophytic left hayder al cyst measuring 2.6 cm. IMPRESSION: 1. Stable few scattered pulmonary nodules measuring up to 4 mm. No new or enlarging pulmonary nodules . 2. Cholelithiasis.
== END | disposition home or self-care (01) ==
LOC: RADCTMAIN 08:01
PROVIDERS: ATTEND Family Medicine
DX: K80.20 Calculus of gallbladder without cholecystitis without obstruction (principal); R91.8 Other nonspecific abnormal finding of lung field
CPT/HCPCS: 71250